=== PATIENT | female | born 1990 | race Hispanic/Latino ===

== ENCOUNTER 2020-10-05 13:16 | Emergency (ER) | payer SELFPAY ==
[~2020-10-05] VITALS: Ht 165.1 cm; Wt 104.3 kg
[2020-10-05] MEDS ORDERED: CASIRIVIMAB/IMDEVIMAB 10 ML in SODIUM CHLORIDE 0.9% 100 ML IV ONE (13:45)
[2020-10-05] MEDS ORDERED: ACETAMINOPHEN 325 MG TAB PO ONE (14:45)
[2020-10-05] MEDS ORDERED: SODIUM CHLORIDE 0.9% 1000ML 1,000 ML IV ONE (14:45)
[2020-10-05] MEDS ORDERED: ACETAMINOPHEN 325 MG TAB ONE (14:49)
[2020-10-05] MEDS ORDERED: SODIUM CHLORIDE 0.9% 1000ML 1,000 ML ONE (14:49)
[2020-10-05 16:14] VITALS: BP 97/56
== END 2020-10-05 16:16 | disposition home or self-care (01) ==
LOC: ER 13:48
DX: U07.1 COVID-19 (principal); R06.02 Shortness of breath
CPT/HCPCS: 99283; J7030

== ENCOUNTER 2020-10-06 08:15 | Inpatient (IN) | payer SELFPAY ==
[~2020-10-06] VITALS: Ht 165.1 cm; Wt 104.3 kg
[2020-10-06] MEDS ORDERED: SODIUM CHLORIDE 0.9% 1000ML 1,000 ML IV STA (08:36)
[2020-10-06] MEDS ORDERED: ZINC SULFATE 220 MG CAP PO SCH (09:00)
[2020-10-06] MEDS ORDERED: REMDESIVIR 200MG 200 MG IV ONE (09:00)
[2020-10-06] MEDS: CEFTRIAXONE 1 GM in SODIUM CHLORIDE 0.9% 50ML 50 ML IV SCH (09:38)
[2020-10-06] MEDS: ASCORBIC ACID 500 MG TAB PO SCH ×2 (09:38→16:09)
[2020-10-06] MEDS: DEXAMETHASONE SOD PHOS 10 MG/1 ML VIAL IV SCH (09:38)
[2020-10-06] MEDS ORDERED: ONDANSETRON HCL INJ 2MG/ML 2ML 2 MG/ML VIAL IV NR (10:00)
[2020-10-06] MEDS ORDERED: ONDANSETRON HCL INJ 2MG/ML 2ML 2 MG/ML VIAL IV PRN (10:00)
[2020-10-06 10:54] LABS: BASOPHILS % 0.2 % (0.0-1.0); HEMATOCRIT 38.9 % (34.2-44.1); HEMOGLOBIN 12.4 g/dL (12.0-16.0); LYMPHOCYTES # (AUTO) 1.6 (1.0-3.2); LYMPHOCYTES % 23.8 % (18.0-39.1); MEAN CORPUSCULAR HEMOGLOBIN 26.6 pg (28-32); MEAN CORPUSCULAR HGB CONC 31.9 g/dL (31-35); MEAN CORPUSCULAR VOLUME 83.3 fL (81-99); MONOCYTES # (AUTO) 0.3 (0.2-0.8); MONOCYTES % 3.8 % (4.4-11.3); NEUTROPHILS # (AUTO) 4.7 (2.1-6.9); NEUTROPHILS % 71.4 % (38.7-80.0); PLATELET COUNT 221 x10e3/uL (140-360); RED BLOOD COUNT 4.67 x10e6/uL (3.6-5.1); RED CELL DISTRIBUTION WIDTH 14.2 % (11.7-14.4)
[2020-10-06 11:43] LABS: ANION GAP 16.4 mmol/L (8-16); POTASSIUM 3.4 mmol/L (3.5-5.1)
[2020-10-06 11:44] LABS: ALBUMIN 4.1 g/dL (3.5-5.0); ALBUMIN/GLOBULIN RATIO 1.1 (0.8-2.0); CALCIUM 8.7 mg/dL (8.4-10.2); CREATININE, SERUM 0.64 mg/dL (0.57-1.11)
[2020-10-06] MEDS ORDERED: ACETAMINOPHEN 325 MG TAB PO PRN (14:00)
[2020-10-06] MEDS: CHOLECALCIFEROL 400 UNIT TAB PO SCH (17:14)
[2020-10-06 22:25] VITALS: BP 110/65
[2020-10-07] VITALS: BP 112/70
[2020-10-07 04:00] VITALS: BP 112/68
[2020-10-07 06:21] LABS: HEMATOCRIT 36.4 % (34.2-44.1); HEMOGLOBIN 11.6 g/dL (12.0-16.0); LYMPHOCYTES # (AUTO) 1.6 (1.0-3.2); LYMPHOCYTES % 39.1 % (18.0-39.1); MEAN CORPUSCULAR HEMOGLOBIN 26.4 pg (28-32); MEAN CORPUSCULAR HGB CONC 31.9 g/dL (31-35); MEAN CORPUSCULAR VOLUME 82.7 fL (81-99); MONOCYTES # (AUTO) 0.4 (0.2-0.8); MONOCYTES % 10.3 % (4.4-11.3); NEUTROPHILS % 49.8 % (38.7-80.0); PLATELET COUNT 247 x10e3/uL (140-360); RED CELL DISTRIBUTION WIDTH 14.2 % (11.7-14.4)
[2020-10-07 07:30] VITALS: BP 103/66
[2020-10-07 07:41] LABS: ALBUMIN 3.8 g/dL (3.5-5.0); ANION GAP 17.8 mmol/L (8-16); CALCIUM 8.6 mg/dL (8.4-10.2); CREATININE, SERUM 0.63 mg/dL (0.57-1.11); POTASSIUM 3.8 mmol/L (3.5-5.1)
[2020-10-07] MEDS: CEFTRIAXONE 1 GM in SODIUM CHLORIDE 0.9% 50ML 50 ML IV SCH (07:49)
[2020-10-07] MEDS: DEXAMETHASONE SOD PHOS 10 MG/1 ML VIAL IV SCH (07:49)
[2020-10-07] MEDS: CHOLECALCIFEROL 400 UNIT TAB PO SCH (07:49)
[2020-10-07] MEDS: ASCORBIC ACID 500 MG TAB PO SCH ×2 (07:49→16:36)
[2020-10-07] MEDS ORDERED: SODIUM CHLORIDE 0.9% 250ML 250 ML ONE (08:00)
[2020-10-07] MEDS: ONDANSETRON HCL INJ 2MG/ML 2ML 2 MG/ML VIAL IV PRN (08:26)
[2020-10-07] MEDS: ZINC SULFATE 50 MG CAP PO SCH (08:26)
[2020-10-07 09:42] VITALS: BP 103/66
[2020-10-07] MEDS ORDERED: ENOXAPARIN 30 MG/0.3 ML SYR SC SCH (10:00)
[2020-10-07 11:00] VITALS: BP 114/74
[2020-10-07] MEDS: SODIUM CHLORIDE 0.9% 1000ML 1,000 ML IV SCH (11:34)
[2020-10-07] MEDS: GUAIFENESIN 200 MG/10 ML UDC PO PRN ×2 (13:31→22:50)
[2020-10-07] MEDS: REMDESIVIR 100MG 100 MG IV SCH (13:32)
[2020-10-07 20:00] VITALS: BP 115/73
[2020-10-07] MEDS: ENOXAPARIN SOD INJ 40 MG/0.4 ML SYR SC SCH ×2 (20:30→22:41)
[2020-10-08] VITALS (7 sets, daily range): BP systolic 99–118; BP diastolic 52–82
[2020-10-08] MEDS: SODIUM CHLORIDE 0.9% 1000ML 1,000 ML IV SCH ×2 (00:03→16:17)
[2020-10-08 05:44] LABS: BASOPHILS % 0.2 % (0.0-1.0); HEMOGLOBIN 11.2 g/dL (12.0-16.0); LYMPHOCYTES # (AUTO) 2.3 (1.0-3.2); LYMPHOCYTES % 37.9 % (18.0-39.1); MEAN CORPUSCULAR HEMOGLOBIN 26.2 pg (28-32); MEAN CORPUSCULAR HGB CONC 31.1 g/dL (31-35); MEAN CORPUSCULAR VOLUME 84.3 fL (81-99); MONOCYTES # (AUTO) 0.6 (0.2-0.8); MONOCYTES % 9.1 % (4.4-11.3); NEUTROPHILS # (AUTO) 3.2 (2.1-6.9); NEUTROPHILS % 52.1 % (38.7-80.0); PLATELET COUNT 278 x10e3/uL (140-360); RED BLOOD COUNT 4.27 x10e6/uL (3.6-5.1); RED CELL DISTRIBUTION WIDTH 14.3 % (11.7-14.4)
[2020-10-08 05:56] LABS: INR 0.98; PROTHROMBIN TIME 13.2 seconds (11.9-14.5)
[2020-10-08 06:26] LABS: ALBUMIN 3.5 g/dL (3.5-5.0); ALBUMIN/GLOBULIN RATIO 1.2 (0.8-2.0); ANION GAP 15.9 mmol/L (8-16); CALCIUM 7.7 mg/dL (8.4-10.2); CREATININE, SERUM 0.61 mg/dL (0.57-1.11); POTASSIUM 3.9 mmol/L (3.5-5.1)
[2020-10-08 08:58] LABS: LYMPHOCYTES % (MANUAL) 40 % (19-48); MONOCYTES % (MANUAL) 8 % (3.4-9.0); NEUTROPHILS % (MANUAL) 50 % (40-74)
[2020-10-08 08:59] LABS: PLATELET ESTIMATE ADEQUATE; PLATELET MORPHOLOGY COMMENT NORMAL; RBC MORPHOLOGY COMMENT NORMAL
[2020-10-08] MEDS: DEXAMETHASONE SOD PHOS 10 MG/1 ML VIAL IV SCH (09:07)
[2020-10-08] MEDS: CHOLECALCIFEROL 400 UNIT TAB PO SCH (09:07)
[2020-10-08] MEDS: ENOXAPARIN SOD INJ 40 MG/0.4 ML SYR SC SCH ×2 (09:07→21:06)
[2020-10-08] MEDS: ASCORBIC ACID 500 MG TAB PO SCH ×2 (09:07→17:16)
[2020-10-08] MEDS: ZINC SULFATE 50 MG CAP PO SCH (09:07)
[2020-10-08] MEDS: PANTOPRAZOLE SOD 40 MG TABEC PO SCH (09:07)
[2020-10-08] MEDS: CEFTRIAXONE 1 GM in SODIUM CHLORIDE 0.9% 50ML 50 ML IV SCH (09:07)
[2020-10-08] MEDS: BARICITINIB 2 MG TABLET PO SCH (13:29)
[2020-10-08] MEDS: REMDESIVIR 100MG 100 MG IV SCH (13:37)
[2020-10-08] MEDS: GUAIFENESIN 200 MG/10 ML UDC PO PRN (21:06)
[2020-10-09] VITALS (7 sets, daily range): BP systolic 114–128; BP diastolic 68–81
[2020-10-09] MEDS: SODIUM CHLORIDE 0.9% 1000ML 1,000 ML IV SCH ×2 (03:23→22:12)
[2020-10-09] MEDS: ONDANSETRON HCL INJ 2MG/ML 2ML 2 MG/ML VIAL IV PRN (04:17)
[2020-10-09 05:35] LABS: BASOPHILS % 0.1 % (0.0-1.0); EOSINOPHILS % 0.1 % (0.0-6.0); HEMATOCRIT 34.9 % (34.2-44.1); LYMPHOCYTES % 43.1 % (18.0-39.1); MEAN CORPUSCULAR HEMOGLOBIN 26.4 pg (28-32); MEAN CORPUSCULAR HGB CONC 31.5 g/dL (31-35); MEAN CORPUSCULAR VOLUME 83.7 fL (81-99); MONOCYTES # (AUTO) 0.6 (0.2-0.8); MONOCYTES % 8.4 % (4.4-11.3); NEUTROPHILS # (AUTO) 3.3 (2.1-6.9); NEUTROPHILS % 47.2 % (38.7-80.0); PLATELET COUNT 314 x10e3/uL (140-360); RED BLOOD COUNT 4.17 x10e6/uL (3.6-5.1); RED CELL DISTRIBUTION WIDTH 14.1 % (11.7-14.4)
[2020-10-09 06:55] LABS: ALBUMIN 3.3 g/dL (3.5-5.0); ALBUMIN/GLOBULIN RATIO 1.1 (0.8-2.0); ANION GAP 14.5 mmol/L (8-16); CALCIUM 7.8 mg/dL (8.4-10.2); CREATININE, SERUM 0.62 mg/dL (0.57-1.11); POTASSIUM 3.5 mmol/L (3.5-5.1)
[2020-10-09] MEDS: DEXAMETHASONE SOD PHOS 10 MG/1 ML VIAL IV SCH (08:46)
[2020-10-09] MEDS: PANTOPRAZOLE SOD 40 MG TABEC PO SCH (08:46)
[2020-10-09] MEDS: BARICITINIB 2 MG TABLET PO SCH (08:47)
[2020-10-09] MEDS: ZINC SULFATE 50 MG CAP PO SCH (08:47)
[2020-10-09] MEDS: CEFTRIAXONE 1 GM in SODIUM CHLORIDE 0.9% 50ML 50 ML IV SCH (08:47)
[2020-10-09] MEDS: ASCORBIC ACID 500 MG TAB PO SCH ×2 (08:47→16:33)
[2020-10-09] MEDS: ENOXAPARIN SOD INJ 40 MG/0.4 ML SYR SC SCH ×2 (08:47→22:11)
[2020-10-09] MEDS: CHOLECALCIFEROL 400 UNIT TAB PO SCH (08:47)
[2020-10-09 09:48] LABS: LYMPHOCYTES % (MANUAL) 33 % (19-48); MONOCYTES % (MANUAL) 3 % (3.4-9.0); NEUTROPHILS % (MANUAL) 59 % (40-74); PLATELET ESTIMATE ADEQUATE; PLATELET MORPHOLOGY COMMENT NORMAL; RBC MORPHOLOGY COMMENT NORMAL
[2020-10-09] MEDS: REMDESIVIR 100MG 100 MG IV SCH (16:33)
[2020-10-10] VITALS (8 sets, daily range): BP systolic 116–134; BP diastolic 64–78
[2020-10-10 05:10] LABS: BASOPHILS % 0.2 % (0.0-1.0); EOSINOPHILS % 0.1 % (0.0-6.0); HEMATOCRIT 34.3 % (34.2-44.1); HEMOGLOBIN 10.7 g/dL (12.0-16.0); LYMPHOCYTES # (AUTO) 3.1 (1.0-3.2); LYMPHOCYTES % 34.7 % (18.0-39.1); MEAN CORPUSCULAR HEMOGLOBIN 25.8 pg (28-32); MEAN CORPUSCULAR HGB CONC 31.2 g/dL (31-35); MEAN CORPUSCULAR VOLUME 82.9 fL (81-99); MONOCYTES # (AUTO) 0.9 (0.2-0.8); NEUTROPHILS # (AUTO) 4.8 (2.1-6.9); NEUTROPHILS % 53.4 % (38.7-80.0); PLATELET COUNT 306 x10e3/uL (140-360); RED BLOOD COUNT 4.14 x10e6/uL (3.6-5.1); RED CELL DISTRIBUTION WIDTH 13.9 % (11.7-14.4)
[2020-10-10 05:29] LABS: ANION GAP 12.8 mmol/L (8-16); CALCIUM 7.8 mg/dL (8.4-10.2); CREATININE, SERUM 0.6 mg/dL (0.57-1.11); POTASSIUM 3.8 mmol/L (3.5-5.1)
[2020-10-10] MEDS: CHOLECALCIFEROL 400 UNIT TAB PO SCH (09:26)
[2020-10-10] MEDS: BARICITINIB 2 MG TABLET PO SCH (09:26)
[2020-10-10] MEDS: DEXAMETHASONE SOD PHOS 10 MG/1 ML VIAL IV SCH (09:26)
[2020-10-10] MEDS: PANTOPRAZOLE SOD 40 MG TABEC PO SCH (09:26)
[2020-10-10] MEDS: ASCORBIC ACID 500 MG TAB PO SCH ×2 (09:26→17:04)
[2020-10-10] MEDS: ZINC SULFATE 50 MG CAP PO SCH (09:26)
[2020-10-10] MEDS: CEFTRIAXONE 1 GM in SODIUM CHLORIDE 0.9% 50ML 50 ML IV SCH (09:26)
[2020-10-10] MEDS: ENOXAPARIN SOD INJ 40 MG/0.4 ML SYR SC SCH ×2 (09:27→21:00)
[2020-10-10] MEDS: SODIUM CHLORIDE 0.9% 1000ML 1,000 ML IV SCH (13:04)
[2020-10-10] MEDS: REMDESIVIR 100MG 100 MG IV SCH (17:04)
[2020-10-11 01:22] VITALS: BP 126/73
[2020-10-11 05:42] VITALS: BP 141/81
[2020-10-11 08:07] VITALS: BP 122/80
[2020-10-11] MEDS: ASCORBIC ACID 500 MG TAB PO SCH (09:09)
[2020-10-11] MEDS: BARICITINIB 2 MG TABLET PO SCH (09:09)
[2020-10-11] MEDS: ZINC SULFATE 50 MG CAP PO SCH (09:09)
[2020-10-11] MEDS: ENOXAPARIN SOD INJ 40 MG/0.4 ML SYR SC SCH (09:09)
[2020-10-11] MEDS: CHOLECALCIFEROL 400 UNIT TAB PO SCH (09:09)
[2020-10-11] MEDS: DEXAMETHASONE SOD PHOS 10 MG/1 ML VIAL IV SCH (09:09)
[2020-10-11] MEDS: PANTOPRAZOLE SOD 40 MG TABEC PO SCH (09:10)
== END 2020-10-11 14:45 | disposition home or self-care (01) | DRG 177 ==
LOC: ER 08:22 → ERHOLD 09:36 → IMCU 22:20
PROVIDERS: ADMIT Internal Medicine; ATTEND Internal Medicine
PROC: 8E0ZXY6 Isolation (ICD-10-PCS; principal; 2020-10-06)
PROC: XW033E5 Introduction of Remdesivir Anti-infective into Peripheral Vein, Percutaneous Approach, New Technology Group 5 (ICD-10-PCS; 2020-10-07)
DX: U07.1 COVID-19 (principal); J12.82 Pneumonia due to coronavirus disease 2019; J96.00 Acute respiratory failure, unspecified whether with hypoxia or hypercapnia; J96.01 Acute respiratory failure with hypoxia; B17.8 Other specified acute viral hepatitis; I10 Essential (primary) hypertension; E66.9 Obesity, unspecified; Z68.38 Body mass index [BMI] 38.0-38.9, adult
CPT/HCPCS: 36415; 71045; 80048; 80053; 82728; 84702; 85025; 85610; 85651; 86140; 87040; 93005; 96361; 99285; J0456; J0696; J1100; J1650; J2405; J7030; J7050; U0002

== ENCOUNTER 2020-10-16 04:54 | Inpatient (IN) | payer OTHER ==
[~2020-10-16] VITALS: Ht 162.6 cm; Wt 108.0 kg
[2020-10-16] MEDS ORDERED: PIPERACILLIN/TAZOBACTAM 4.5 GM in SODIUM CHLORIDE 0.9% 100 ML IV STA (05:12)
[2020-10-16] MEDS ORDERED: METRONIDAZOLE 750MG/NS 150ML 150 ML IV STA (05:12)
[2020-10-16] MEDS ORDERED: SODIUM CHLORIDE 0.9% 1000ML 1,000 ML IV SCH ×7 (05:15→13:45)
[2020-10-16] MEDS ORDERED: SODIUM CHLORIDE 0.9% 1000ML 2,000 ML ONE (05:16)
[2020-10-16] MEDS ORDERED: PIPERACILLIN/TAZO 4.5 GM 100 ML IV STA (05:19)
[2020-10-16] MEDS ORDERED: METRONIDAZOLE 500MG/NS 100ML 150 ML IV STA (05:22)
[2020-10-16 05:30] LABS: BASOPHILS # (AUTO) 0.1 (0.0-0.1); BASOPHILS % 0.2 % (0.0-1.0); HEMATOCRIT 39.6 % (34.2-44.1); HEMOGLOBIN 12.6 g/dL (12.0-16.0); LYMPHOCYTES % 12.9 % (18.0-39.1); MEAN CORPUSCULAR HEMOGLOBIN 26.6 pg (28-32); MEAN CORPUSCULAR HGB CONC 31.8 g/dL (31-35); MEAN CORPUSCULAR VOLUME 83.7 fL (81-99); MONOCYTES # (AUTO) 1.5 (0.2-0.8); MONOCYTES % 6.6 % (4.4-11.3); NEUTROPHILS # (AUTO) 18.1 (2.1-6.9); NEUTROPHILS % 79.1 % (38.7-80.0); PLATELET COUNT 403 x10e3/uL (140-360); RED BLOOD COUNT 4.73 x10e6/uL (3.6-5.1); RED CELL DISTRIBUTION WIDTH 15.1 % (11.7-14.4)
[2020-10-16] MEDS: MORPHINE SULFATE INJ 4 MG/ML INJ 1ML IV PRN ×2 (05:41→12:00)
[2020-10-16 05:46] LABS: ALBUMIN 3.5 g/dL (3.5-5.0); ALBUMIN/GLOBULIN RATIO 0.9 (0.8-2.0); ANION GAP 14.8 mmol/L (8-16); CALCIUM 8.8 mg/dL (8.4-10.2); CREATININE, SERUM 0.61 mg/dL (0.57-1.11); POTASSIUM 4.8 mmol/L (3.5-5.1)
[2020-10-16] MEDS ORDERED: MORPHINE SULFATE INJ 4 MG/ML INJ 1ML IV STA (07:21)
[2020-10-16] MEDS ORDERED: ONDANSETRON HCL INJ 2MG/ML 2ML 2 MG/ML VIAL IV PRN ×7 (08:15→13:45)
[2020-10-16] MEDS ORDERED: FENTANYL CITRATE/PF 100MCG/2 ML INJ IV ONE (10:00)
[2020-10-16 11:21] LABS: INR 0.99; PROTHROMBIN TIME 13.3 seconds (11.9-14.5)
[2020-10-16] MEDS ORDERED: LIDOCAINE 1% W/EPINEPHRINE 20 ML VIAL ONE (12:38)
[2020-10-16] MEDS ORDERED: BUPIVACAINE 0.25% 30ML SDV ONE (12:38)
[2020-10-16] MEDS ORDERED: LIDOCAINE HCL 2% JELLY 5 ML TUBE ONE (12:39)
[2020-10-16] MEDS ORDERED: HYDROCODONE/APAP 7.5MG-325MG 1 EA TAB PO PRN ×5 (13:45)
[2020-10-16] MEDS ORDERED: HYDROMORPHONE 1MG/1ML INJ IV PRN ×5 (13:45)
[2020-10-16] MEDS ORDERED: ACETAMINOPHEN 1000 MG/100 ML IV PRN ×6 (13:45)
[2020-10-16] MEDS ORDERED: HYDROMORPHONE 1MG/1ML INJ ONE (14:10)
[2020-10-16 15:42] VITALS: BP 109/64
[2020-10-16 15:43] VITALS: BP 109/64
[2020-10-16] MEDS ORDERED: PROAIR HFA INH8.5 GM INH (15:54)
[2020-10-16] MEDS ORDERED: 8 HOUR PAIN RE650 MG PO (15:54)
[2020-10-16] MEDS ORDERED: vitamin d3 PO (15:54)
[2020-10-16] MEDS ORDERED: ASPIRIN EC81 MG PO (15:54)
[2020-10-16] MEDS ORDERED: DEXAMETHASONE6 MG PO (15:54)
[2020-10-16] MEDS ORDERED: VITAMIN C WIT1000 MG PO (15:54)
[2020-10-16 15:56] VITALS: BP 109/64
[2020-10-16] MEDS: SODIUM CHLORIDE 0.9% 1000ML 1,000 ML IV SCH (16:30)
[2020-10-16] MEDS: PIPERACILLIN/TAZOBACTAM 3.375 GM in SODIUM CHLORIDE 0.9% 50ML 50 ML IV SCH (16:40)
[2020-10-16] MEDS ORDERED: METRONIDAZOLE 500MG/NS 100ML 100 ML IV SCH ×5 (18:00)
[2020-10-16] MEDS ORDERED: PIPERACILLIN/TAZOBACTAM 3.375 GM in SODIUM CHLORIDE 0.9% 50ML 50 ML IV SCH ×10 (18:00)
[2020-10-16] MEDS: METRONIDAZOLE 500MG/NS 100ML 100 ML IV SCH (18:22)
[2020-10-16 20:00] VITALS: BP 101/51
[2020-10-16] MEDS: HYDROCODONE/APAP 7.5MG-325MG 1 EA TAB PO PRN (20:10)
[2020-10-17] VITALS (8 sets, daily range): BP systolic 98–125; BP diastolic 46–82
[2020-10-17] MEDS: METRONIDAZOLE 500MG/NS 100ML 100 ML IV SCH ×5 (00:57→23:52)
[2020-10-17] MEDS: SODIUM CHLORIDE 0.9% 1000ML 1,000 ML IV SCH ×3 (00:57→22:28)
[2020-10-17] MEDS: PIPERACILLIN/TAZOBACTAM 3.375 GM in SODIUM CHLORIDE 0.9% 50ML 50 ML IV SCH ×4 (00:57→18:45)
[2020-10-17] MEDS: HYDROMORPHONE 1MG/1ML INJ IV PRN ×4 (01:57→20:55)
[2020-10-17] MEDS: HYDROCODONE/APAP 7.5MG-325MG 1 EA TAB PO PRN ×2 (04:26→15:40)
[2020-10-17 05:27] LABS: BASOPHILS % 0.2 % (0.0-1.0); EOSINOPHILS % 0.1 % (0.0-6.0); HEMATOCRIT 33.7 % (34.2-44.1); HEMOGLOBIN 10.8 g/dL (12.0-16.0); LYMPHOCYTES # (AUTO) 2.9 (1.0-3.2); LYMPHOCYTES % 17.9 % (18.0-39.1); MEAN CORPUSCULAR HEMOGLOBIN 26.9 pg (28-32); MONOCYTES # (AUTO) 1.3 (0.2-0.8); MONOCYTES % 7.8 % (4.4-11.3); NEUTROPHILS # (AUTO) 11.8 (2.1-6.9); NEUTROPHILS % 73.1 % (38.7-80.0); PLATELET COUNT 331 x10e3/uL (140-360); RED BLOOD COUNT 4.01 x10e6/uL (3.6-5.1); RED CELL DISTRIBUTION WIDTH 14.9 % (11.7-14.4)
[2020-10-17 05:49] LABS: ANION GAP 13.2 mmol/L (8-16); CALCIUM 8.5 mg/dL (8.4-10.2); CREATININE, SERUM 0.6 mg/dL (0.57-1.11); POTASSIUM 4.2 mmol/L (3.5-5.1)
[2020-10-18] VITALS: BP 101/53
[2020-10-18] MEDS: PIPERACILLIN/TAZOBACTAM 3.375 GM in SODIUM CHLORIDE 0.9% 50ML 50 ML IV SCH ×3 (01:02→13:55)
[2020-10-18 04:00] VITALS: BP 95/51
[2020-10-18] MEDS: HYDROMORPHONE 1MG/1ML INJ IV PRN ×3 (04:25→11:17)
[2020-10-18] MEDS: METRONIDAZOLE 500MG/NS 100ML 100 ML IV SCH ×2 (05:28→12:32)
[2020-10-18 08:33] VITALS: BP 107/67
[2020-10-18] MEDS: SODIUM CHLORIDE 0.9% 1000ML 1,000 ML IV SCH (08:51)
[2020-10-18 08:52] VITALS: BP 107/67
[2020-10-18 09:40] LABS: BASOPHILS % 0.3 % (0.0-1.0); EOSINOPHILS # (AUTO) 0.1 (0.0-0.4); EOSINOPHILS % 0.8 % (0.0-6.0); HEMATOCRIT 35.4 % (34.2-44.1); HEMOGLOBIN 11.1 g/dL (12.0-16.0); LYMPHOCYTES # (AUTO) 3.9 (1.0-3.2); LYMPHOCYTES % 33.2 % (18.0-39.1); MEAN CORPUSCULAR HEMOGLOBIN 26.7 pg (28-32); MEAN CORPUSCULAR HGB CONC 31.4 g/dL (31-35); MEAN CORPUSCULAR VOLUME 85.3 fL (81-99); MONOCYTES # (AUTO) 1.1 (0.2-0.8); MONOCYTES % 9.1 % (4.4-11.3); NEUTROPHILS # (AUTO) 6.5 (2.1-6.9); NEUTROPHILS % 55.7 % (38.7-80.0); PLATELET COUNT 306 x10e3/uL (140-360); RED BLOOD COUNT 4.15 x10e6/uL (3.6-5.1); RED CELL DISTRIBUTION WIDTH 15.2 % (11.7-14.4)
[2020-10-18 09:58] LABS: ANION GAP 14.8 mmol/L (8-16); CALCIUM 8.3 mg/dL (8.4-10.2); CREATININE, SERUM 0.67 mg/dL (0.57-1.11); POTASSIUM 3.8 mmol/L (3.5-5.1)
[2020-10-18 12:17] VITALS: BP 112/49
[2020-10-18 15:53] VITALS: BP 94/47
== END 2020-10-18 16:00 | disposition home or self-care (01) | DRG 334 ==
LOC: ER 05:14 → ERHOLD 08:05 → OBSVTOIN 13:54 → IMCU 15:35
PROVIDERS: ADMIT Surgery; ATTEND Surgery
PROC: 0DBP0ZZ Excision of Rectum, Open Approach (ICD-10-PCS; principal; 2020-10-16 13:30)
DX: K60.5 Anorectal fistula (principal); Z20.822 Contact with and (suspected) exposure to COVID-19
CPT/HCPCS: 36415; 71045; 80048; 80053; 83605; 84702; 85025; 85610; 87040; 87071; 87075; 87086; 87186; 87205; 96361; 99284; J1170; J2001; J2270; J2405; J2543; J3010; J7030; U0002

== ENCOUNTER → 2020-11-02 | Day surgery (SDC) | payer OTHER ==
[~2020-11-02] MED LIST: 8 HOUR PAIN RE650 MG PO; ASPIRIN EC81 MG PO; BUPIVACAINE 0.25% 30ML SDV ONE; COLACE100 MG PO; DEXAMETHASONE SOD PHOS INJ 4 MG/ML SDV ONE; DEXAMETHASONE6 MG PO; FENTANYL CITRATE/PF 100MCG/2 ML INJ ONE; HYDROCODONE/APAP 7.5MG-325MG 1 EA TAB ONE; LIDOCAINE 1% W/EPINEPHRINE 20 ML VIAL ONE; LIDOCAINE HCL 2% JELLY 5 ML TUBE ONE; LIDOCAINE HCL 2% LOCAL INJ 5 ML SDV VIAL INJ ONE; ONDANSETRON HCL INJ 2MG/ML 2ML 2 MG/ML VIAL ONE; POVIDONE IODINE 0.05% 0.05 % ML PO ONE; PROAIR HFA INH8.5 GM INH; PROPOFOL IV EMULSION 10 MG/ML 20 ML VIAL ONE; SEVOFLURANE INHAL SOLN 250 ML PEN BTL ONE; STOOL SOFTENER100 MG; VITAMIN C WIT1000 MG PO; vitamin d3 PO
[2020-11-02 12:00] VITALS: BP 101/65
== END | disposition home or self-care (01) ==
LOC: OR 06:13
PROVIDERS: ATTEND Surgery
DX: K60.5 Anorectal fistula (principal); E66.01 Morbid (severe) obesity due to excess calories; Z86.16 Personal history of COVID-19
CPT/HCPCS: 46020; 81025; J2001; J3010; J1100; J2405